=== PATIENT | female | born 1990 | race Caucasian/White ===

== ENCOUNTER 2022-03-28 03:19 | Emergency (ER) | payer MEDICAID ==
[~2022-03-28] VITALS: Ht 160 cm; Wt 59.0 kg
[2022-03-28 03:39] VITALS: BP_SYST 144
--- NOTE | 2022-03-28 03:47 | NUR ---
PT IS AA&OX4. VERBAL, AFEBRILE. C/O 9/10 PAIN ON R EYEBROW LACERATION SITE. BIB FRIEND STATING PT FELL OFF FR MOTORIZED SCOOTER LANDED FACE DOWN.DOESN'T REMEMBER WHEN SHE GOT HER LAST TETANUS SHOT. NKA. PUT TO BED 3, GOWN PROVIDED.
--- NOTE | 2022-03-28 03:50 | NUR ---
REPORT GIVEN TO MIREYA.
[2022-03-28] MEDS ORDERED: DIPHTH,PERTUSS(ACELL),TET VAC 0.5 ML VIAL (Tdap) I.M. ONE (04:00)
[2022-03-28 04:10] VITALS: BP_SYST 131
[2022-03-28] MEDS ORDERED: ACET325T PO (04:32)
--- NOTE | 2022-03-28 04:40 | NUR ---
MD STICHED THE LACERATION TO PATIENTS RIGHT EYE AND PATIENT REFUSED DTAP ORDERED MD EXPLAINED TO PATIENT THE RISK OF NOT TAKING THE TETANUS TOXIOD INJECTION . PATIENT JUST GOT UP AND LEFT SAYING THAT SHE WAS OKAY . PATIENT REFUSED TO SIGN THE AMA FORM, SHE JUST WALKED OUT WITH HER BOY FRIEND. MD TOLD PATIENT THAT SHE COULD GO TO HER PRIMARY MD TO GET THE STICHES TAKEN OFF AFTER SEVEN DAYS OR SHE CAN COME BACK TO THE ED TO GET STICHES TAKEN OFF.
== END 2022-03-28 04:40 | disposition home or self-care (01) ==
LOC: SED 03:19
DX: S01.111A Laceration without foreign body of right eyelid and periocular area, initial encounter (principal); Z79.899 Other long term (current) drug therapy; V00.141A Fall from scooter (nonmotorized), initial encounter; Y93.89 Activity, other specified; Y92.89 Other specified places as the place of occurrence of the external cause; Y99.8 Other external cause status
CPT/HCPCS: 90715; 99282